=== PATIENT | male | born 1995 | race African-American/Black ===

== ENCOUNTER 2018-09-04 06:26 | Emergency (ER) | payer MEDICAID ==
[~2018-09-04] VITALS: Ht 182.9 cm; Wt 90.7 kg
[2018-09-04 06:29] VITALS: BP 151/88
[2018-09-04] MEDS ORDERED: methylPREDNISolone SOD SUCC 125 MG/2 ML VL IV ONE (07:45)
[2018-09-04] MEDS ORDERED: KETOROLAC TROMETH 30 MG/ML 1ML VIAL IV ONE (07:45)
[2018-09-04] MEDS ORDERED: cefTRIAXone 1GM/50ML D5W 50 ML IV ONE (07:45)
[2018-09-04] MEDS ORDERED: CLINDAMYCIN 600MG IV 50 ML IV ONE (07:45)
== END 2018-09-04 08:49 | disposition home or self-care (01) ==
LOC: ER 06:26
DX: J03.90 Acute tonsillitis, unspecified (principal); F17.210 Nicotine dependence, cigarettes, uncomplicated; Z88.0 Allergy status to penicillin
CPT/HCPCS: 96365; 96368; 96375; 99283; J0696; J1885; J2930; J3490

== ENCOUNTER 2019-05-11 19:02 | Emergency (ER) | payer MEDICAID ==
[~2019-05-11] VITALS: Ht 185.4 cm; Wt 88.9 kg
[2019-05-11 19:24] VITALS: BP 121/50
== END 2019-05-11 23:43 | disposition home or self-care (01) ==
LOC: ER 19:02
DX: J06.9 Acute upper respiratory infection, unspecified (principal); J02.9 Acute pharyngitis, unspecified; F17.210 Nicotine dependence, cigarettes, uncomplicated
CPT/HCPCS: 71045

== ENCOUNTER 2020-11-27 14:47 | Emergency (ER) | payer MEDICAID ==
[~2020-11-27] VITALS: Ht 182.9 cm; Wt 102.1 kg
[2020-11-27 14:47] VITALS: BP 130/79
[2020-11-27] MEDS ORDERED: HYDROcodone-ACET 5/325MG TAB PO ONE (16:00)
== END 2020-11-27 16:36 | disposition home or self-care (01) ==
LOC: ER 14:47
DX: S82.52XA Displaced fracture of medial malleolus of left tibia, initial encounter for closed fracture (principal); Z88.0 Allergy status to penicillin; W01.0XXA Fall on same level from slipping, tripping and stumbling without subsequent striking against object, initial encounter; Y93.89 Activity, other specified; Y92.89 Other specified places as the place of occurrence of the external cause; Y99.8 Other external cause status
CPT/HCPCS: 29515; 73562; 73610

== ENCOUNTER 2020-12-05 13:39 | Emergency (ER) | payer MEDICAID ==
[~2020-12-05] VITALS: Ht 182.9 cm; Wt 99.8 kg
[2020-12-05 15:39] VITALS: BP 110/74
== END 2020-12-05 17:17 | disposition home or self-care (01) ==
LOC: ER 13:39
DX: S01.81XA Laceration without foreign body of other part of head, initial encounter (principal); F17.210 Nicotine dependence, cigarettes, uncomplicated; Z88.0 Allergy status to penicillin; W01.0XXA Fall on same level from slipping, tripping and stumbling without subsequent striking against object, initial encounter; Y93.89 Activity, other specified; Y92.89 Other specified places as the place of occurrence of the external cause; Y99.8 Other external cause status
CPT/HCPCS: 12011